=== PATIENT | female | born 1985 | race Caucasian/White ===

== ENCOUNTER 2022-12-10 14:51 | Emergency (ER) | payer OTHER ==
[~2022-12-10] VITALS: Ht 157.5 cm; Wt 68.8 kg
[2022-12-10] MEDS ORDERED: IBUPROFEN400 MG PO (15:15)
[2022-12-10] MEDS ORDERED: ONDANSETRON ODT8 MG PO (17:09)
== END 2022-12-10 17:20 | disposition home or self-care (01) ==
LOC: ED 14:51
DX: U07.1 COVID-19 (principal)
CPT/HCPCS: 87502; 99284; A9270; C9803; U0003

== ENCOUNTER 2023-02-28 04:56 | Emergency (ER) | payer OTHER ==
[~2023-02-28] VITALS: Ht 157.5 cm; Wt 69.7 kg
[~2023-02-28 04:56] MED LIST: IBUPROFEN400 MG PO; ONDANSETRON ODT8 MG PO
[2023-02-28] MEDS ORDERED: HYDROXYZINE HCL25 MG PO (07:16)
[2023-02-28 08:25] VITALS: BP 121/74
== END 2023-02-28 08:25 | disposition home or self-care (01) ==
LOC: ED 04:56
DX: F43.23 Adjustment disorder with mixed anxiety and depressed mood (principal); Z79.899 Other long term (current) drug therapy
CPT/HCPCS: 36415; 80053; 81001; 84443; 84703; 85025; G0480

== ENCOUNTER 2023-07-18 08:03 | Emergency (ER) | payer OTHER ==
[~2023-07-18] VITALS: Ht 157.5 cm; Wt 69.8 kg
[~2023-07-18 08:03] MED LIST changes: +CYCLOBENZAPRINE5 MG PO; +HYDROXYZINE HCL25 MG PO
--- OUTSIDE RECORDS SUMMARY | 2023-07-18 08:09 | XMS ---
PreManage Notification: ZENON COATES Security Program Checker Events No recent Security Events currently on file CRITERIA MET - [facility] - 2 Visits in 30 Days CARE PROVIDERS -Marlee- Dentist: Convolute Tube Winder [facility] PHONE: [phone] Maeve has no Care Guidelines for this patient. Scottie VISIT COUNT (12 MO.) [address] [place] [address] TOTAL 4 NOTE: Visits indicate total known visits. ED/C VISIT TRACKING (12 MO.) 07/18/2023 08:05 [facility] [place] TYPE: Emergency COMPLAINT: - TAILBONE/L HIP/ANKLE PAIN, MID BACK STRAIN 07/09/2023 10:30 [facility] [place] TYPE: Emergency COMPLAINT: - FALL DIAGNOSES: - Fall on same level from slipping, tripping and stumbling without subsequent striking against object, initial encounter - Low back pain, unspecified - Other skilled nursing (current) drug therapy - Sacrococcygeal disorders, not elsewhere classified 02/28/2023 04:57 [facility] [place] TYPE: Emergency COMPLAINT: - PANIC ATTACK DIAGNOSES: - Adjustment disorder with mixed anxiety and depressed mood - Anxiety disorder, unspecified - Other skilled nursing (current) drug therapy 12/10/2022 14:52 [facility] [place] TYPE: Emergency COMPLAINT: - FLU SYMPTOMS, COUGH DIAGNOSES: - COVID-19 - Nausea with vomiting, unspecified INPATIENT VISIT TRACKING (12 MO.) No inpatient visits to display in this time frame [email or web address]
[2023-07-18] MEDS ORDERED: IBUPROFEN600 MG PO (08:25)
[2023-07-18] MEDS ORDERED: METHYLPREDNISOLO4 M1 PO (08:44)
[2023-07-18] MEDS ORDERED: LIDODERM1 EACH TOP (08:44)
[2023-07-18] MEDS ORDERED: ONDANSETRON ODT8 MG PO (08:44)
[2023-07-18 08:54] VITALS: BP 133/72
== END 2023-07-18 08:50 | disposition home or self-care (01) ==
LOC: ED 08:03
DX: M54.42 Lumbago with sciatica, left side (principal); Z79.899 Other long term (current) drug therapy
CPT/HCPCS: 99283; A9270; J8540

== ENCOUNTER 2023-09-12 08:52 | Emergency (ER) | payer OTHER ==
[~2023-09-12] VITALS: Ht 157.5 cm; Wt 70.4 kg
[~2023-09-12 08:52] MED LIST changes: +IBUPROFEN600 MG PO; +LIDODERM1 EACH TOP; +METHYLPREDNISOLO4 M1 PO
[2023-09-12] MEDS ORDERED: NITROFURANTOIN100 M1 PO (09:08)
[2023-09-12 09:46] LABS: BASOPHILS 0.7 % (0-2); EOSINOPHILS 1.1 % (0-6); HEMATOCRIT 41.6 % (35.0-50.0); HEMOGLOBIN 14.2 g/dL (12.0-18.0); LYMPHOCYTES 24.2 % (24-44); MCH 35.5 (27-36); MCHC 34.1 g/dl (30-36); MCV 104.3 fl (81-99); MONOCYTES 4.7 % (0-12); NEUTROPHILS 69.3 % (39-80); PLATELET COUNT 413 K/uL (140-440); RBC 3.99 M/ul (4.3-5.7); RDW 12.9 (10.5-15.0)
[2023-09-12 10:14] LABS: ALBUMIN 3.8 g/dL (3.4-5.0); ALBUMIN/GLOBULIN RATIO 1.23 (1.1-2.4); ANION GAP 12.4 (7-21); BILIRUBIN, TOTAL 0.4 ng/dL (0.2-1.0); BUN/CREATININE RATIO 17.07 (6.0-28.6); CALCIUM 8.6 mg/dL (8.5-10.1); CREATININE, SERUM 0.82 mg/dL (0.55-1.02); MAGNESIUM 1.9 mg/dL (1.8-2.4); POTASSIUM 4.4 mmol/L (3.5-5.1); PROTEIN, TOTAL 6.9 g/dL (6.4-8.2)
[2023-09-12 10:34] LABS: BILIRUBIN, URINE NEGATIVE (negative); BLOOD/HGB, URINE TRACE-I (Negative); KETONE, URINE NEGATIVE (Negative); LEUK ESTERASE, URINE NEGATIVE (negative); NITRITE, URINE NEGATIVE (negative)
[2023-09-12 10:42] LABS: EPITHELIAL CELLS, URINE SQUAMOUS 3+ /lpf (0-1+); RED BLOOD CELLS, URINE 0-1 /hpf (0-5); WHITE BLOOD CELLS, URINE 0-1 /HPF (0-5)
[2023-09-12 10:43] LABS: BACTERIA, URINE NONE SEEN /hpf (negative); CASTS, URINE NONE SEEN \\lpf; COLLECTION TYPE, URINE CLEAN CATCH; CRYSTALS, URINE NONE SEEN (0-1+); REFLEX CULTURE, URINE No (No)
[2023-09-12] MEDS ORDERED: ONDANSETRON ODT4 MG PO (12:56)
[2023-09-12] MEDS ORDERED: PREDNISONE20 MG PO (12:56)
[2023-09-12 13:52] VITALS: BP 114/80
[2023-09-14 14:45] LABS: C. DIFF TOXIN B GENE TCDB,PCR Detected (())
== END 2023-09-12 13:55 | disposition home or self-care (01) ==
LOC: ED 08:52
PROVIDERS: Emergency Medicine
DX: R10.84 Generalized abdominal pain (principal); R11.10 Vomiting, unspecified; R19.7 Diarrhea, unspecified
CPT/HCPCS: 36415; 74177; 76705; 80053; 81001; 83690; 83735; 84703; 85025; 85651; 86140; 87493; 96361; 99284-25; J2405; J7030; Q9967

== ENCOUNTER 2023-10-23 09:44 | Emergency (ER) | payer OTHER ==
[~2023-10-23] VITALS: Ht 157.5 cm; Wt 68.8 kg
[~2023-10-23 09:44] MED LIST changes: +NITROFURANTOIN100 M1 PO; +ONDANSETRON ODT4 MG PO; +PREDNISONE20 MG PO
[2023-10-23 10:32] VITALS: BP 155/98
== END 2023-10-23 10:32 | disposition home or self-care (01) ==
LOC: ED 09:44
DX: M25.551 Pain in right hip (principal)
CPT/HCPCS: 99283

== ENCOUNTER 2024-10-18 13:40 | Emergency (ER) | payer OTHER ==
[~2024-10-18] VITALS: Ht 157.5 cm; Wt 72.7 kg
[~2024-10-18 13:40] MED LIST changes: +AMITRIPTYLINE H10 MG PO; +ESCITALOPRAM OXA5 MG PO; +GABAPENTIN300 MG PO; +PROMETHAZINE HC25 M1 PO; +ZYRTEC10 M3 PO
[2024-10-18] MEDS ORDERED: IBUPROFEN 800 MG TAB PO ONE (14:15)
[2024-10-18 15:32] VITALS: BP 117/77
== END 2024-10-18 15:32 | disposition home or self-care (01) ==
LOC: ED 13:40
DX: S63.502A Unspecified sprain of left wrist, initial encounter (principal); K58.9 Irritable bowel syndrome, unspecified; Z79.899 Other long term (current) drug therapy; W19.XXXA Unspecified fall, initial encounter
CPT/HCPCS: 73110; 99283; A9270

== ENCOUNTER 2024-12-24 22:33 | Emergency (ER) | payer OTHER ==
[~2024-12-24] VITALS: Ht 157.5 cm; Wt 70.3 kg
[2024-12-24] MEDS ORDERED: LORazepam 2 MG/ML VIAL IV ONE (22:45)
[2024-12-24] MEDS ORDERED: droPERidol 5 MG/2 ML VIAL IV ONE (22:45)
[2024-12-24] MEDS ORDERED: SODIUM CHLORIDE 0.9% 1,000 ML IV ONE ×2 (22:45→23:45)
[2024-12-24 22:50] LABS: HEMATOCRIT 40.8 % (35.0-50.0); HEMOGLOBIN 13.9 g/dL (12.0-18.0); MCH 34.7 (27-36); MCHC 34.2 g/dl (30-36); MCV 101.3 fl (81-99); PLATELET COUNT 794 K/uL (140-440); RBC 4.02 M/ul (4.3-5.7)
[2024-12-24 23:05] LABS: ALBUMIN 3.6 g/dL (3.4-5.0); ALBUMIN/GLOBULIN RATIO 0.78 (1.1-2.4); ANION GAP 22.8 (7-21); BILIRUBIN, TOTAL 0.4 mg/dL (0.2-1.0); POTASSIUM 2.8 mmol/L (3.5-5.1); PROTEIN, TOTAL 8.2 g/dL (6.4-8.2)
[2024-12-24 23:11] LABS: EOSINOPHILS, MANUAL DIFF 1; LYMPHOCYTES, MANUAL DIFF 24; MONOCYTES, MANUAL DIFF 5; NEUTROPHILS, MANUAL DIFF 70
[2024-12-24] MEDS ORDERED: POTASSIUM CHLORIDE 10 MEQ/100 ML BAG IV ONE (23:15)
[2024-12-25] MEDS ORDERED: DIPHENOXYLATE/ATROPINE 1 EA TAB PO ONE (01:00)
[2024-12-25] MEDS ORDERED: PROMETHAZINE HCL 25 MG HOME.PACK PO ONE (01:00)
[2024-12-25 01:10] VITALS: BP 117/79
== END 2024-12-25 01:10 | disposition home or self-care (01) ==
LOC: ED 22:33
PROVIDERS: Emergency Medicine
DX: K52.9 Noninfective gastroenteritis and colitis, unspecified (principal); R06.4 Hyperventilation; Z79.899 Other long term (current) drug therapy
CPT/HCPCS: 36415; 80053; 83690; 85025; 96365; 96375; 99284-25; J1790; J2060; J3480; J7030

== ENCOUNTER 2025-04-04 09:21 | Emergency (ER) | payer OTHER ==
[~2025-04-04] VITALS: Ht 157.5 cm; Wt 73.1 kg
[2025-04-04] MEDS ORDERED: PREDNISONE20 MG PO (10:00)
[2025-04-04] MEDS ORDERED: HYDROCODON-ACE1 EA10 PO (10:00)
[2025-04-04] MEDS ORDERED: ONDANSETRON ODT4 MG PO (10:00)
[2025-04-04 10:13] VITALS: BP 128/94
== END 2025-04-04 10:13 | disposition home or self-care (01) ==
LOC: ED 09:21
DX: M54.50 Low back pain, unspecified (principal); Z79.899 Other long term (current) drug therapy
CPT/HCPCS: 99283

== ENCOUNTER 2025-06-02 11:57 | Emergency (ER) | payer OTHER ==
[~2025-06-02] VITALS: Ht 157.5 cm; Wt 71.0 kg
[~2025-06-02 11:57] MED LIST changes: +HYDROCODON-ACE1 EA10 PO
[2025-06-02] MEDS ORDERED: PENICILLIN V P500 MG PO (12:12)
[2025-06-02] MEDS ORDERED: PENICILLIN V POTASSIUM 500 MG TAB PO ONE (12:15)
[2025-06-02 12:24] VITALS: BP 129/101
== END 2025-06-02 12:24 | disposition home or self-care (01) ==
LOC: ED 11:57
DX: K08.89 Other specified disorders of teeth and supporting structures (principal); K03.81 Cracked tooth; R68.84 Jaw pain
CPT/HCPCS: 99283

== ENCOUNTER 2025-07-03 20:55 | Emergency (ER) | payer OTHER ==
[~2025-07-03] VITALS: Ht 157.5 cm; Wt 71.0 kg
[~2025-07-03 20:55] MED LIST changes: +PENICILLIN V P500 MG PO
[2025-07-03] MEDS ORDERED: KETOROLAC TROMETHAMINE 60 MG/2 ML VIAL IM ONE (22:00)
[2025-07-03] MEDS ORDERED: CELEBREX200 MG PO (22:52)
[2025-07-03] MEDS ORDERED: TRAMADOL HCL 50 MG HOME.PACK PO ONE (23:00)
[2025-07-03 23:07] VITALS: BP 130/85
== END 2025-07-03 23:08 | disposition home or self-care (01) ==
LOC: ED 20:55
DX: S83.92XA Sprain of unspecified site of left knee, initial encounter (principal); W01.0XXA Fall on same level from slipping, tripping and stumbling without subsequent striking against object, initial encounter; Y99.0 Civilian activity done for income or pay; Z79.899 Other long term (current) drug therapy
CPT/HCPCS: 73560; 96372; 99283; A9270; J1885

== ENCOUNTER 2025-07-12 08:39 | Emergency (ER) | payer OTHER ==
[~2025-07-12] VITALS: Ht 157.5 cm; Wt 72.8 kg
[~2025-07-12 08:39] MED LIST changes: +CELEBREX200 MG PO
--- OUTSIDE RECORDS SUMMARY | 2025-07-12 12:48 | XMS ---
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 Scottie VISIT COUNT (12 MO.) 7 [facility] Obrien TOTAL 7 NOTE: Visits indicate total known visits. ED/UCC VISIT TRACKING (12 MO.) 07/12/2025 12:46 [facility] TYPE: Emergency COMPLAINT: - BACK INJURY 07/03/2025 20:55 [facility] TYPE: Emergency COMPLAINT: - KNEE INJURY DIAGNOSES: - Civilian activity done for income or pay - Fall on same level from slipping, tripping and stumbling without subsequent striking against object, initial encounter - Other detention (current) drug therapy - Sprain of unspecified site of left knee, initial encounter 06/02/2025 11:58 [facility] TYPE: Emergency COMPLAINT: - MOUTH PAIN DIAGNOSES: - Cracked tooth - Jaw pain - Other specified disorders of teeth and supporting structures 04/04/2025 09:22 [facility] TYPE: Emergency COMPLAINT: - BACK PAIN DIAGNOSES: - Low back pain, unspecified - Other credit risk specialist (current) drug therapy 12/24/2024 22:33 [facility] [place] TYPE: Emergency COMPLAINT: - ANXIETY DIAGNOSES: - Hyperventilation - Noninfective gastroenteritis and colitis, unspecified - Other credit risk specialist (current) drug therapy - Vomiting, unspecified 10/18/2024 13:40 [facility] [place] TYPE: Emergency COMPLAINT: - FALL DIAGNOSES: - Irritable bowel syndrome without diarrhea - Other credit risk specialist (current) drug therapy - Pain in left wrist - Unspecified fall, initial encounter - Unspecified sprain of left wrist, initial encounter 07/19/2024 12:45 [facility] [place] TYPE: Emergency COMPLAINT: - ANXIETY DIAGNOSES: - Anxiety disorder, unspecified - Irritable bowel syndrome with diarrhea - Irritable bowel syndrome without diarrhea - Other detention (current) drug therapy INPATIENT VISIT TRACKING (12 MO.) No inpatient visits to display in this time frame [email or web address]
[2025-07-12 13:33] VITALS: BP 136/83
== END 2025-07-12 13:30 | disposition home or self-care (01) ==
LOC: ED 08:39
DX: M54.50 Low back pain, unspecified (principal); G89.29 Other chronic pain; Z79.899 Other long term (current) drug therapy
CPT/HCPCS: 72100; 99283

== ENCOUNTER 2025-10-12 13:09 | Emergency (ER) | payer OTHER ==
[~2025-10-12] VITALS: Ht 157.5 cm; Wt 72.3 kg
[2025-10-12] MEDS ORDERED: AMOX TR-K CLV1 EAC1 PO (13:40)
[2025-10-12] MEDS ORDERED: HYDROCODON-ACE1 EA10 PO (13:40)
[2025-10-12 13:47] VITALS: BP 121/76
== END 2025-10-12 13:45 | disposition home or self-care (01) ==
LOC: ED 13:09
DX: K08.89 Other specified disorders of teeth and supporting structures (principal)
CPT/HCPCS: 99282